=== PATIENT | female | born 1990 | race Caucasian/White ===

== ENCOUNTER → 2018-04-26 | Outpatient (CLI) | payer BC ==
[~2018-04-26] VITALS: Ht 160 cm; Wt 51.1 kg
[~2018-04-26] MED LIST: CYMBALTA 20MG20 MG PO; CYMBALTA 60MG60 MG PO; DEPAKOTE ER 50500 MG PO; TOPAMAX200 MG PO; XANAX 0.5MG0.5 MG PO
[2018-04-26 13:50] VITALS: BP 111/66; PULSE 64
[2018-04-26 15:10] VITALS: BP 102/70; PULSE 59
== END ==
LOC: COL.RAD 13:30
DX: M51.16 Intervertebral disc disorders with radiculopathy, lumbar region (principal)
CPT/HCPCS: J3301

== ENCOUNTER 2018-11-03 21:36 | Emergency (ER) | payer BC ==
[~2018-11-03] VITALS: Ht 160 cm; Wt 54.5 kg
[2018-11-03 21:40] VITALS: TEMP 98
[2018-11-03 22:12] LABS: BASO # 0.1 (0.0-0.2); BASO % 0.8 % (0.0-2.0); EOS # 0.1 (0.0-0.7); EOS % 1.3 % (0-4.0); GRAN % 48.1 % (42.2-75.2); HEMATOCRIT 39.2 % (37.0-47.0); HEMOGLOBIN 13.4 g/dl (12.5-16.0); LYMPH # 2.4 (1.2-3.4); LYMPH % 38.3 % (20.0-51.0); MEAN CELL VOLUME 91 fl (80.0-100.0); MEAN CORPUSCULAR HEMOGLOBIN 31 pg (27.0-31.0); MEAN CORPUSCULAR HGB CONC 34 g/dl (33.0-37.0); MEAN PLATELET VOLUME 10.3 fl (7.4-10.4); MONO # 0.7 (0.1-0.6); MONO % 11.3 % (1.7-9.3); PLATELET COUNT 235 K/mm3 (130-400); RED BLOOD COUNT 4.32 M/mm3 (4.10-5.30); REDCELL DISTRIBUTION WIDTH-CV 12.1 % (11.5-14.5)
[2018-11-03 22:29] LABS: ALBUMIN 3.9 gm/dL (3.5-5.0); BILIRUBIN,TOTAL 0.5 mg/dL (0.0-1.0); CALCIUM 9.4 mg/dL (8.4-10.2); CREATININE, serum 0.79 mg/dL (0.52-1.25); POTASSIUM 3.5 mmol/L (3.4-5.0)
[2018-11-03 22:46] LABS: PROLACTIN 23.2 ng/mL (3.0-18.6)
[2018-11-03] MEDS ORDERED: OXTELLAR600 PO (23:50)
[2018-11-03] MEDS ORDERED: ZONEGRAN50 MG PO (23:50)
[2018-11-03] MEDS ORDERED: KEPPRA750 MG PO (23:51)
[2018-11-03] MEDS ORDERED: MOBIC15 MG PO (23:51)
[2018-11-03] MEDS ORDERED: KLONOPIN WAFER0.5 MG PO (23:51)
[2018-11-04] MEDS ORDERED: KLONOPIN WAFER0.5 MG PO (00:35)
[2018-11-04] MEDS ORDERED: KEPPRA 500MG500 MG PO (00:35)
[2018-11-04 00:55] VITALS: BP 113/75; PULSE 80
== END 2018-11-04 00:55 | disposition home or self-care (01) ==
LOC: COL.ER 21:36
PROVIDERS: Emergency Medicine
DX: G40.209 Localization-related (focal) (partial) symptomatic epilepsy and epileptic syndromes with complex partial seizures, not intractable, without status epilepticus (principal); F17.210 Nicotine dependence, cigarettes, uncomplicated
CPT/HCPCS: J1953; J2060; J7030

== ENCOUNTER → 2019-01-03 | Outpatient (CLI) | payer BC ==
[~2019-01-03] MED LIST changes: +KEPPRA 500MG500 MG PO; +KEPPRA750 MG PO; +KLONOPIN WAFER0.5 MG PO; +MOBIC15 MG PO; +OXTELLAR600 PO; +ZONEGRAN50 MG PO
== END ==
LOC: COL.RAD 07:29
DX: R10.12 Left upper quadrant pain (principal)

== ENCOUNTER 2020-12-13 19:17 | Outpatient (CLI) | payer MEDICAID ==
[~2020-12-13] VITALS: Ht 160 cm; Wt 61.8 kg
--- NOTE | 2020-12-13 19:20 | NUR ---
G1 at 30 weeks and 5 days arrives to unit ambulatory with complaint of decreased movement. Pt states that she has felt her baby move a few times today but not as much as usually. Pt denies contractions, LOF, or vaginal bleeding. Pt denies headaches, blurry vision, or RUQ pain. Pt is epileptic and reports feeling an aura overnight so took rescue clonazepam and took tramadol this afternoon for back pain. Pt oriented to room, call light within reach, bed in low and locked position. US and toco explained and applied. Plan of care reviewed with patient and spouse.
--- NOTE | 2020-12-13 19:45 | NUR ---
Category 1 FHR tracing obtained. Pt has felt and seen baby move since arrival.
[2020-12-13 19:50] VITALS: BP 101/69; PULSE 75
[2020-12-13] MEDS ORDERED: ULTRAM 50MG TAB50 MG PO (20:00)
[2020-12-13] MEDS ORDERED: PRENATAL TABLET PO (20:01)
--- NOTE | 2020-12-13 20:10 | NUR ---
Discharge instructions reviewed with patient and spouse, verbalized understanding. Pt seen ambulating off unit with spouse.
== END 2020-12-13 20:10 | disposition home or self-care (01) ==
LOC: LDRO 19:17 → LDR 19:20 → LDRO 20:10
DX: O36.8130 Decreased fetal movements, third trimester, not applicable or unspecified (principal); Z3A.30 30 weeks gestation of pregnancy
CPT/HCPCS: OP

== ENCOUNTER 2021-02-04 16:29 | Inpatient (IN) | payer MEDICAID ==
[~2021-02-04] VITALS: Ht 160.1 cm; Wt 66.8 kg
[2021-02-04] VITALS (20 sets, daily range): BP systolic 99–142; BP diastolic 56–86; PULSE 41–92; TEMP 97.7–98.5
[~2021-02-04 16:29] MED LIST changes: -PERCOCET 325 MG1 TA3 PO; -PRILOSEC 20MG20 MG PO
--- NOTE | 2021-02-04 16:35 | NUR ---
Patient ambulatory to LR6, changed into gown, FHR/TOCO monitors placed and explained. Patient sent over from office per Dr. Zhang for extended monitoring due to low FHR baseline. Patient denies any leaking of fluid/vaginal bleeding/regular contracitions/decreased movement. Plan of care discussed. 1710: Variable deceleration into 60bpm, RN at bedside and patient left lateral and prolonged deceleration 90-100bpm for approx. [address] Zhang called and updated on decleration and orders to admit patient. 1755: Dr. Zhang at bedside and discussing plan of care. Options for delivery and risk factors discussed. Patient decides for csection delivery at this time and questions answered. IV started in right upper arm, blood obtained and to lab, LR infusing. Consents gone over and signed. Patient prepped for csection delivery. 1810: Bedside report given to Sari SELF.
[2021-02-04] MEDS ORDERED: PRILOSEC 20MG20 MG PO (17:04)
[2021-02-04 18:10] LABS: BASO % 0.3 % (0.0-2.0); EOS % 0.2 % (0-4.0); HEMOGLOBIN 12.1 g/dl (12.5-16.0); LYMPH # 2.1 (1.2-3.4); LYMPH % 21.2 % (20.0-51.0); MEAN CELL VOLUME 90 fl (80.0-100.0); MEAN CORPUSCULAR HEMOGLOBIN 31 pg (27.0-31.0); MEAN CORPUSCULAR HGB CONC 34 g/dl (33.0-37.0); MEAN PLATELET VOLUME 10.9 fl (7.4-10.4); MONO # 0.7 (0.1-0.6); MONO % 6.9 % (1.7-9.3); PLATELET COUNT 227 K/mm3 (130-400); RED BLOOD COUNT 3.92 M/mm3 (4.10-5.30); REDCELL DISTRIBUTION WIDTH-CV 12.3 % (11.5-14.5)
[2021-02-04 18:19] LABS: HEMATOCRIT 35.3 % (37.0-47.0)
--- NOTE | 2021-02-04 18:40 | NUR ---
Off monitor, ambulatory to C/S room.
--- NOTE | 2021-02-04 23:45 | NUR ---
Pt reports "my pain is getting worse" orders obained. Oxycodone given @ 0030. Pericare done, Binder applied. Pt turns side to side with encouragement. states "I'm seeing black spots, is that normal?" Deep breathing encouraged. after < 1 minutes pt states "it's better."
[2021-02-05 05:42] LABS: HEMOGLOBIN 11.5 g/dl (12.5-16.0)
[2021-02-05 05:44] LABS: HEMATOCRIT 33.4 % (37.0-47.0)
--- NOTE | 2021-02-05 06:00 | NUR ---
Up to bathroom with steady gait, tipton catheter dc'd, performs own pericare. back to bed without difficulty.
[2021-02-05 09:05] VITALS: BP 103/56; PULSE 50; TEMP 98.2
--- NOTE | 2021-02-05 09:15 | NUR ---
Initial visit; Family thanked [employer] for offering congratulations and God's blessings for the of their daughter. [employer] thanked family for choosing [place].
--- NOTE | 2021-02-05 16:00 | NUR ---
Pt up to the shower independently and without complications. Dressing removed. Incision is well approximated with no redness, swelling or drainage noted.
[2021-02-05 16:15] VITALS: BP 100/71; PULSE 52; TEMP 97.8
[2021-02-05 20:00] VITALS: BP 100/56; PULSE 55; TEMP 97.4
[2021-02-06 03:00] VITALS: BP 103/58; PULSE 47; TEMP 97.9
[2021-02-06] MEDS ORDERED: PERCOCET 325 MG1 TA3 PO (09:26)
[2021-02-06 09:30] VITALS: BP 110/77; PULSE 57; TEMP 98.1
[2021-02-06 15:40] VITALS: BP 103/67; PULSE 59; TEMP 98.3
--- NOTE | 2021-02-06 18:40 | NUR ---
Report recieved. Sitting in recliner at this time. Updated whiteboard and reviewed POC. Questions invited.
[2021-02-06 20:55] VITALS: BP 111/69; PULSE 76; TEMP 98.3
[2021-02-07 08:44] VITALS: BP 118/81; PULSE 64; TEMP 98.6
== END 2021-02-07 09:00 | disposition home or self-care (01) | DRG 787 ==
LOC: LDRO 16:29 → LDR 17:27 → OB 17:27
PROVIDERS: ADMIT Obstetrics & Gynecology
PROC: 10D00Z1 Extraction of Products of Conception, Low, Open Approach (ICD-10-PCS; principal; 2021-02-04)
DX: O76 Abnormality in fetal heart rate and rhythm complicating labor and delivery (principal); O99.354 Diseases of the nervous system complicating childbirth; G40.909 Epilepsy, unspecified, not intractable, without status epilepticus; O99.344 Other mental disorders complicating childbirth; F31.9 Bipolar disorder, unspecified; F41.9 Anxiety disorder, unspecified; O75.89 Other specified complications of labor and delivery; M79.7 Fibromyalgia; Z3A.38 38 weeks gestation of pregnancy; Z37.0 Single live birth; Z88.1 Allergy status to other antibiotic agents; Z88.6 Allergy status to analgesic agent; Z88.8 Allergy status to other drugs, medicaments and biological substances; Z87.891 Personal history of nicotine dependence
CPT/HCPCS: J1100; J2590; J2704; J7120

== ENCOUNTER → 2021-02-04 | Outpatient (CLI) | payer MEDICAID ==
[~2021-02-04] MED LIST changes: +PERCOCET 325 MG1 TA3 PO; +PRENATAL TABLET PO; +PRILOSEC 20MG20 MG PO; +ULTRAM 50MG TAB50 MG PO
== END ==
LOC: ZCOL.LAB 09:43
DX: Z20.822 Contact with and (suspected) exposure to COVID-19 (principal)

== ENCOUNTER 2022-05-23 15:05 | Emergency (ER) | payer MEDICAID ==
[~2022-05-23] VITALS: Ht 160 cm; Wt 47.7 kg
[~2022-05-23 15:05] MED LIST changes: +PERCOCET 325 MG1 TA3 PO; +PRILOSEC 20MG20 MG PO
[2022-05-23 15:21] VITALS: TEMP 98.1
[2022-05-23] MEDS ORDERED: ROXICODONE 55 MG/TAB PO (15:51)
[2022-05-23] MEDS ORDERED: ZOFRAN ODT4 MG PO (15:51)
[2022-05-23] MEDS ORDERED: NEURONTIN300 MG/CAP PO (15:51)
[2022-05-23] MEDS ORDERED: ULTRAM 50MG TAB50 MG PO (15:51)
[2022-05-23 16:05] VITALS: BP 113/60; PULSE 62
== END 2022-05-23 16:05 | disposition home or self-care (01) ==
LOC: COL.ER 15:05
DX: O21.9 Vomiting of pregnancy, unspecified (principal); O99.891 Other specified diseases and conditions complicating pregnancy; G89.29 Other chronic pain; M54.50 Low back pain, unspecified; G57.93 Unspecified mononeuropathy of bilateral lower limbs; Z76.0 Encounter for issue of repeat prescription; Z28.310 Unvaccinated for COVID-19; Z88.6 Allergy status to analgesic agent; Z88.8 Allergy status to other drugs, medicaments and biological substances; Z3A.01 Less than 8 weeks gestation of pregnancy

== ENCOUNTER 2022-06-18 13:41 | Day surgery (SDC) | payer OTHER, MEDICAID ==
[~2022-06-18] VITALS: Ht 162.6 cm; Wt 46.5 kg
[~2022-06-18 13:41] MED LIST changes: +NEURONTIN300 MG/CAP PO; +ROXICODONE 55 MG/TAB PO; +ZOFRAN ODT4 MG PO
[2022-06-18] MEDS ORDERED: KEPPRA750 MG PO (14:26)
[2022-06-18 14:47] VITALS: BP 97/59; PULSE 58; TEMP 98.1
[2022-06-18 15:15] VITALS: BP 93/72; PULSE 59; TEMP 99.1
--- NOTE | 2022-06-18 15:15 | NUR ---
PT TO BAY 5 PER CART FROM PROCEDURE ROOM. REPORT RECEIVED. VS OBATINED. CALL LIGHT WITHIN REACH. PT DENIES ANY NEEDS AT THIS TIME.
--- NOTE | 2022-06-18 15:15 | NUR ---
PT TO BAY 5 PER CART FROM PROCEDURE ROOM. REPORT RECEIVED. VS OBATINED. CALL LIGHT WITHIN REACH. PT DENIES ANY NEEDS AT THIS TIME.
--- NOTE | 2022-06-18 15:25 | NUR ---
IN ROOM DISCUSSING FINDINGS DURING PROCEDURE.
--- NOTE | 2022-06-18 15:25 | NUR ---
IN ROOM DISCUSSING FINDINGS DURING PROCEDURE.
[2022-06-18 15:30] VITALS: BP 95/65; PULSE 60
--- NOTE | 2022-06-18 15:30 | NUR ---
PT TOLERATING JUICE WITHOUT DIFFICULTY. PT DENIES WANTING ANYTHING TO EAT SHE IS EATING DINNER WHEN SHE IS DISCHARGED.
--- NOTE | 2022-06-18 15:30 | NUR ---
PT TOLERATING JUICE WITHOUT DIFFICULTY. PT DENIES WANTING ANYTHING TO EAT SHE IS EATING DINNER WHEN SHE IS DISCHARGED.
[2022-06-18 15:45] VITALS: BP 93/62; PULSE 63
--- NOTE | 2022-06-18 16:00 | NUR ---
1545-IV DC'D. PT TOLERATED WELL. 1550-DISCHARGE EDUCATION COMPLETED WITH PT. VERBALIZED UNDERSTANDING OF HOME AND FOLLOW UP CARE. ALL QUESTIONS ANSWERED. DISCHARGE PAPERWORK GIVEN TO PT. 1600-PT OFF UNIT PER WHEELCHAIR. PT DISCHARGED TO HOME WITH PER PERSONAL VEHICLE.
== END 2022-06-18 16:00 | disposition home or self-care (01) ==
LOC: SDCO 13:41
DX: O99.611 Diseases of the digestive system complicating pregnancy, first trimester (principal); K22.2 Esophageal obstruction; O21.9 Vomiting of pregnancy, unspecified; O99.331 Smoking (tobacco) complicating pregnancy, first trimester; K92.0 Hematemesis; E46 Unspecified protein-calorie malnutrition; K21.9 Gastro-esophageal reflux disease without esophagitis; F17.210 Nicotine dependence, cigarettes, uncomplicated; Z3A.11 11 weeks gestation of pregnancy; Z68.1 Body mass index [BMI] 19.9 or less, adult
CPT/HCPCS: C1726; J2704; J7120

== ENCOUNTER 2022-12-24 15:27 | Inpatient (IN) | payer MEDICARE, MEDICAID ==
[~2022-12-24] VITALS: Ht 160 cm; Wt 57.3 kg
[2022-12-27] VITALS (20 sets, daily range): BP systolic 98–137; BP diastolic 61–84; PULSE 40–76; TEMP 97.7–98.2
[2022-12-27 06:27] LABS: BASO % 0.5 % (0.0-2.0); EOS # 0.1 K/mm3 (0.0-0.7); EOS % 0.6 % (0.0-4.0); GRAN # 4.9 K/mm3 (1.4-6.5); GRAN % 62.1 % (42.2-75.2); HEMOGLOBIN 11.3 g/dl (12.5-16.0); LYMPH # 2.2 K/mm3 (1.2-3.4); LYMPH % 27.8 % (20.0-51.0); MEAN CELL VOLUME 90 fl (80.0-100.0); MEAN CORPUSCULAR HEMOGLOBIN 31 pg (27-31); MEAN CORPUSCULAR HGB CONC 35 g/dl (33.0-37.0); MEAN PLATELET VOLUME 10.4 fl (7.4-10.4); MONO # 0.6 K/mm3 (0.1-0.6); MONO % 7.7 % (1.7-9.3); PLATELET COUNT 190 K/mm3 (130-400); RED BLOOD COUNT 3.65 M/mm3 (4.10-5.30)
[2022-12-27 06:28] LABS: HEMATOCRIT 32.7 % (37.0-47.0)
[2022-12-27] MEDS ORDERED: BENADRYL25 M2 PO (06:40)
[2022-12-27 07:58] LABS: TRICYCLIC ANTIDEPRESS URINE NEGATIVE
--- NOTE | 2022-12-27 16:45 | NUR ---
PT DENIES NUMBNESS TO BILAT LOWER EXT, ABLE TO LIFT OFF OF BED. PT UP TO BATHROOM WITH STEADY GAIT, DENIES DIZZINESS OR SHORTNESS OF BREATH. COLEY CATHETER DISCONTINUED WHILE PT SITTING ON TOILET. ASSISTED WITH REENA CARE AND DISCUSSED USE OF REENA BOTTLE. MESH PANTIES AND REENA PAD PROVIDED. PT INDEPENDENTLY AMBULATING IN HALLWAY AFTER UP TO BATHROOM.
--- NOTE | 2022-12-28 02:10 | NUR ---
UPON SHIFT CHANGE, PT WAS REQUESTING TO GO OUTSIDE TO SMOKE. PT STATED SHE SMOKED 5-6 CIGARETTES DAILY DURING PREGANCY. NURSE ADVISED PT THAT SHE CAN NOT LEAVE THE UNIT UNTIL INT IS REMOVED. I&O COMPLETED AND INT REMOVED AT 2049. PT LEFT TO SMOKE AT APPROX 2100, 2200 AND 0200. BABY TO NURSERY OR REMAINED IN NURSERY EACH TIME SO FAR. PT REQUESTED AMBIEN AND/OR MELATONIN TO SLEEP. PT WAS ADVISED THAT NEITHER WAS ORDERED FOR HER, BUT TRAZODONE WAS. TRAZODONE ADMINISTERED AT APPROX 2320; PT REQUESTED OXY AT 0030 AND STATED THE TRAZODONE DID NOT HELP. PT STATED SHE DOES HAVE A TOLERANCE TO SLEEP AIDES WELL PAIN MEDS. PT HAS REQUESTED PAIN MEDS Q4H, AND HAS NOT HAD MUCH REST. BABY TO NURSERY FOR MOST OF THE NIGHT, PER MOM'S REQUEST. MOM HAS BEEN IN WITH BABY SEVERAL TIMES THROUGHOUT THE NIGHT AND HAS BEEN VERY LOVING WITH BABY.
[2022-12-28 03:45] VITALS: BP 91/54; PULSE 47; TEMP 97.9
[2022-12-28 07:42] VITALS: BP 99/64; PULSE 49; TEMP 97.7
--- NOTE | 2022-12-28 09:18 | NUR ---
PATIENT REPORTS THAT TYLENOL IS NOT HELPING WITH PAIN, ASKS IF SHE CAN HAVE MOTRIN. THIS NURSE EDUCATES HER IT IS NOT ORDERED IT IS LISTED AN ALLERGY. PATIENT STATES "ITS NOT AN ALLERGY IT JUST UPSETS MY STOMACH AND I WOULD RATHER HAVE AN UPSET STOMACH IF IT WOULD HELP THE PAIN IN MY INCISION." CALLED TO TO ASK FOR MOTRIN PER PATIENT REQUEST. PT REPORTS IT WAS ON ALLERGY LIST IT UPSETS HER STOMACH. ORDER REC'D FOR MOTRIN.
--- NOTE | 2022-12-28 09:54 | NUR ---
Initial visit; Patient thanked [employer] for offering congratulations and God's blessings this morning for the of her daughter. [employer] thanked patient for choosing [place].
--- NOTE | 2022-12-28 09:58 | NUR ---
MOTHER LEAVES INFANT AT DESK WITH THIS NURSE WHILE SHE LEAVES THE UNIT.
--- NOTE | 2022-12-28 10:10 | NUR ---
MOTHER RETURNS TO UNIT AND TAKES INFANT BACK TO ROOM.
--- NOTE | 2022-12-28 11:47 | NUR ---
REMIGIO met with MOB at bedside to assess resources and address THC use during . MOB currently on disability due to multiple health problems and does not work. She suffers from epilepsy and had her last seizure 4 months ago. Lack of sleep is a trigger for her. Her supports are her and her mother in law who lives down the street and is an RN. She is seeking mental health treatment through [facility] in [place]. This is her second child that she shares with her . She reports that they make to much money for financial resources but is established with infant toddler services through the health department for her oldest child who has a speech delay. She reports to having all necessary supplies to care for baby at home and is planning on bottle feeding. Patient admits to taking gummies to help her sleep as she was not allowed to take her established medications during . She was unaware that they had THC in them and reports to buying them in [place]. She utilizes Oxycodone for pain, again to not being able to take certain medications during . Medical staff updated.
[2022-12-28 12:45] VITALS: BP 106/61; PULSE 61; TEMP 97.8
[2022-12-28 17:08] VITALS: BP 104/53; PULSE 64; TEMP 97.2
--- NOTE | 2022-12-28 17:15 | NUR ---
MOTHER CONCERNED INFANT IS ROOTING AND ACTING HUNGRY EVEN THOUGH JUST FED AT 1545. TALKED TO MOTHER ABOUT HOW SHE SMOKES AND NOW THAT BABY IS NOT GETTING ANY NICOTINE FROM HER BABY IS WITHDRAWLING ALSO COULD STILL WITHDRAWL FROM OXY THAT MOTHER WAS TAKING. SO INFANT MAY NOT BE HUNGRY BUT SHOWING SIGNS OF WITHDRAWL LIKE MOTHER WOULD IF SHE STOPPED SMOKING COLD TURKEY. MOTHER SEEMS TO UNDERSTAND BETTER AFTER EXPLAINING IT TO HER THAT WAY. MOTHER EDUCATED ABOUT USING PACIFIER, MOVEMENT, SWADDLING, AND SKIN TO SKIN TO SOOTHE HER IF NEEDED. MOTHER VERBALIZES UNDERSTANDING. ALSO TALKED ABOUT PURPLE PERIOD OF CRYING AND IF INFANT IS NOT SOOTHING AT HOME TO PUT INFANT IN SAFE SPOT AND TAKE A BREAK. MOTHER VERBALIZES UNDERSTANDING.
--- NOTE | 2022-12-28 18:30 | NUR ---
Report recieved. Ambulating around room, fussing. Visitors at bedside. POC reviewed and whiteboard updated. Questions invited and denied.
[2022-12-28 19:00] VITALS: BP 94/57; PULSE 49; TEMP 97.9
[2022-12-29 07:00] VITALS: BP 97/60; PULSE 53; TEMP 98
--- NOTE | 2022-12-29 16:12 | NUR ---
CPS report made to positive UDS . Intake #[id number]
== END 2022-12-29 11:10 | disposition home or self-care (01) | DRG 787 ==
LOC: OB 12-27 05:00
PROVIDERS: ADMIT Obstetrics & Gynecology
PROC: 10D00Z1 Extraction of Products of Conception, Low, Open Approach (ICD-10-PCS; principal; 2022-12-27)
DX: O34.211 Maternal care for low transverse scar from previous cesarean delivery (principal); O99.354 Diseases of the nervous system complicating childbirth; O99.344 Other mental disorders complicating childbirth; F41.9 Anxiety disorder, unspecified; F31.9 Bipolar disorder, unspecified; M79.7 Fibromyalgia; O99.892 Other specified diseases and conditions complicating childbirth; G89.29 Other chronic pain; O99.334 Smoking (tobacco) complicating childbirth; F90.9 Attention-deficit hyperactivity disorder, unspecified type; F17.210 Nicotine dependence, cigarettes, uncomplicated; G40.909 Epilepsy, unspecified, not intractable, without status epilepticus; Z3A.39 39 weeks gestation of pregnancy; Z88.8 Allergy status to other drugs, medicaments and biological substances; Z88.6 Allergy status to analgesic agent; Z88.1 Allergy status to other antibiotic agents; Z37.0 Single live birth; Z88.5 Allergy status to narcotic agent
CPT/HCPCS: J0690; J1100; J1885; J2370; J2405; J2590; J7120